=== PATIENT | female | born 1950 | race Caucasian/White ===

== ENCOUNTER 2016-11-08 14:15 | Emergency (ER) | payer OTHER, MEDICARE ==
[~2016-11-08] VITALS: Ht 167.6 cm; Wt 64.0 kg
[2016-11-08 14:19] VITALS: BP 142/80; PULSE 81; RESP 22; TEMP 98.2; O2SAT 100
[2016-11-08] MEDS ORDERED: LISI10TA3 PO (14:19)
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
[2016-11-08] MEDS ORDERED: KETOROLAC TROMETHAMINE 30 MG/ML (IVP) VIAL IV PUSH ONE (15:00)
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
[2016-11-08] MEDS ORDERED: ROBA500T PO (16:54)
[2016-11-08] MEDS ORDERED: NAPR500 PO (16:54)
[2016-11-08 16:58] VITALS: BP 130/67
== END 2016-11-08 17:36 | disposition home or self-care (01) ==
LOC: NEPC 14:15
DX: S20.211A Contusion of right front wall of thorax, initial encounter (principal); S16.1XXA Strain of muscle, fascia and tendon at neck level, initial encounter; V43.62XA Car passenger injured in collision with other type car in traffic accident, initial encounter; Y93.89 Activity, other specified; Y92.89 Other specified places as the place of occurrence of the external cause; Y99.8 Other external cause status
CPT/HCPCS: 71010; 72125; 73130; 73502; 96374; 99284; J1885